=== PATIENT | female | born 1965 | race African-American/Black ===

== ENCOUNTER 2016-09-09 12:10 | Emergency (ER) | payer SELFPAY ==
[2016-09-09] MEDS ORDERED: OXYCODONE HCL 5 MG TABLET PO ONE (12:22)
--- NOTE | 2016-09-09 12:24 | EDPRACDOC ---
- General Information Stated Complaint: RIGHT SHOULDER PAIN Time Seen by Provider: 09/09/16 12:18 Information Source: Patient Mode of Arrival: Car Home Medications: Home Medications Hydrocodone Bit/Acetaminophen [Lortab 5/325] 1 tab PO Q4-6H PRN #15 tab Ibuprofen 600 mg PO Q6H PRN #20 tablet 09/09/16 Allergies/Adverse Reactions: Allergies Allergy/AdvReac Type Severity Reaction Status Date / Time No Known Drug Allergies Allergy Unknown Verified 09/09/16 12:29 - History of Present Illness Onset: 3 hours HPI: Pt states she was carrying a mattress and he son dropped his end causing it to hit her R shoulder. C/o pain. Denies numbness, cp, sob, neck pain. R hand dominate Description: Reports: With Use, At Rest Location: Reports: Right, Anterior, Superior Circumstances: Reports: Spontaneous, Blunt Trauma Relevant History: Reports: None Dominant Hand: Right Pain Severity: Moderate Able to Move Shoulder?: Yes Associated Signs & Symptoms: Reports: None ED Past Medical History - History Reviewed Yes Nurses notes reviewed and agree except as marked - Social Medical History Smoking Status: Light tobacco smoker (less than 5/day) ETOH: None Substance Abuse: None EDM Review of Systems - Review of Systems Constitutional: No Symptoms Reported. negative: Fever, Chills, Weakness, Fatigue, Loss of Appetite Respiratory: No Symptoms Reported. negative: Cough, Brassy Cough, Barky Cough, Shortness of Breath, Wheezing, Hemoptysis Cardiovascular: No Symptoms Reported. negative: Chest Pain, Palpitations, Syncope, Edema, Orthopnea, PND, Skin Mottling, Cyanosis Neurological: No Symptoms Reported. negative: Headache, Dizziness, Seizure, Numbness, Weakness, Speech Difficulty, Gait Difficulty Musculoskeletal: Shoulder Integumentary: No Symptoms Reported. negative: Itching, Rash, Bruising, Wound Allergic/Immunologic: No Symptoms Reported. negative: Hives, Itching Hematologic: No Symptoms Reported. negative: Lymphadenopathy, Easy Bruising, Easy Bleeding Psychiatric: No Symptoms Reported. negative: Anxiety, Depression, Hallucinations, Insomnia, Suicidal - Physical Exam Constitutional: Alert Oriented to: Time, Person, Place Last recorded Vital Signs: Oxygen Pulse Oxygen Saturation O2 Device Oxygen Flow Rate Fraction of Inspired Oxygen ( FIO2) - HEENT Head: Normal ( normocephalic) Eye Exam: Normal (PERRL, EOMI, Sclera white) Neck: Normal (FROM, trachea at midline) - Respiratory/Cardiovascular Respiratory: Normal - CTA (BBS clear to auscultation without adventitious sounds ) Cardiovascular: Normal (RRR without murmur, gallop or rub) - Musculoskeletal Back: Normal (Non-Tender) Extremities: Normal (Normal tone, Pulses 2+ No cyanosis or edema, FROM) - Integumentary Skin: Normal, Warm, Dry Lymphatics: Normal (no adenopathy) - Neurologic Memory Impaired: Normal Motor Function: Normal (Normal tone, Pulses 2+ No cyanosis or edema, FROM) Mood Description: Normal Perception: Normal ED Shoulder Problem Exam - Musculoskeletal Clavicle: Tender (Ac joint) Shoulder: Tender Drop arm test: Negative Impingement test: Negative Arm: Normal Distal Function/Circulation: Normal - Differential Diagnosis AC separation, Sprain - Diagnostic Imaging Shoulder Image interpreted by: Radiologist IMPRESSION: 1. [id number] degenerative glenohumeral arthropathy. No fracture or dislocation observed. Decision Time to Discharge: 13:06 - Departure Disposition: Home Condition: Good Final Diagnosis: Sprain of right shoulder Qualifiers: Encounter type: initial encounter Shoulder sprain type: unspecified sprain Qualified Code(s): S43.401A - Unspecified sprain of right shoulder joint, initial encounter Instructions: Shoulder Sprain (ED), RICE: Routine Care for Injuries Education/Counseling Given To: Patient Education/Counseling Given Regarding: Diagnosis, Treatment, Follow Up Referrals: None,No Provider [Primary Care Provider] - One Week Cesario Avelar MD [Staff Physician] - One Week Prescriptions: Hydrocodone Bit/Acetaminophen [Lortab 5/325] 1 tab PO Q4-6H PRN #15 tab PRN Reason: Pain Ibuprofen 600 mg PO Q6H PRN #20 tablet PRN Reason: Pain Additional Instructions: Return for worse or different symptoms.
[2016-09-09 12:31] VITALS: TEMP 98.3; BMI 26.4
--- NOTE | 2016-09-09 13:03 | DIRPT ---
CLINICAL DATA: Mattress struck right shoulder and fall down stairs. Shoulder pain. EXAM: RIGHT SHOULDER - 2+ VIEW COMPARISON: None FINDINGS: Mild spurring of the inferior glenoid with suspicion for mild chondral thinning in the glenohumeral joint. No fracture or dislocation. Mild degenerative AC joint arthropathy. Subacromial morphology is type 2 (curved). IMPRESSION: 1. [id number] degenerative glenohumeral arthropathy. No fracture or dislocation observed. Electronically Signed By: [place] M.D. On: 09/09/2016 13:00
[2016-09-09 13:17] VITALS: BP 169/102; PULSE 84
== END 2016-09-09 13:20 | disposition home or self-care (01) ==
LOC: EDMC 12:10
DX: S43.401A Unspecified sprain of right shoulder joint, initial encounter (principal); X58.XXXA Exposure to other specified factors, initial encounter; Y93.89 Activity, other specified
CPT/HCPCS: 73030; 99283; J3490

== ENCOUNTER 2016-09-13 09:18 | Emergency (ER) | payer SELFPAY ==
[2016-09-13 09:31] VITALS: TEMP 98.6; BMI 26.6
[2016-09-13] MEDS ORDERED: PREDNISONE 20 MG TAB PO ONE (09:42)
[2016-09-13] MEDS ORDERED: ALBUTEROL 0.083% 3 ML NEB NEB ONE (09:42)
[2016-09-13] MEDS ORDERED: AZITHROMYCIN 250 MG TAB PO ONE (09:42)
[2016-09-13] MEDS ORDERED: TUSSIONEX 5 ML ORAL SYRINGE PO ONE (09:43)
--- NOTE | 2016-09-13 09:45 | EDPRACDOC ---
- General Information Chief Complaint: Flu-Like Symptoms Stated Complaint: COUGH, SYNCOPE Time Seen by Provider: 09/13/16 09:38 Mode Of Arrival: Car Home Medications: Home Medications Azithromycin [Zithromax] 250 mg PO DAILY #6 tablet 09/13/16 Prednisone [Sterapred 10 mg/6 day pack] 21 tab PO DIR #1 pack 09/13/16 Tussionex [Tussionex Oral Suspension] 5 ml PO BID PRN #120 ml 09/13/16 Unknown Blood Pressure 1 tab PO DAILY 09/13/16 Allergies/Adverse Reactions: Allergies Allergy/AdvReac Type Severity Reaction Status Date / Time tramadol Allergy Nausea only Verified 09/13/16 09:27 - History of Present Illness Symptoms Started: Tuesday HPI: PATIENT PRESENTS C/O COUGH- NONPRODUCTIVE FOR DAYS. NO FEVER. PAIN WITH ANY COUGH. MILD SOB. Symptoms: Reports: Cough, Nasal Symptoms Recent Medications: Reports: None Relevant History Of: Reports: COPD Shortness of Breath: Mild Cough Frequency: Continuous Cough Description: Reports: Non-productive Rhinorrhea: Reports: Clear Ear Symptoms: Reports: None Associated Signs and Symptoms: Reports: Cough, Nasal Symptoms ED Past Medical History - History Reviewed Yes Nurses notes reviewed and agree except as marked Travel Outside of [place] in the Last 3 Months?: No - Patient Medical History Cardiac History: Reports: Hypertension Psychological History: Denies: Depression Surgical History: Reports: Hysterectomy - Social Medical History Smoking Status: Light tobacco smoker (less than 5/day) ETOH: None Substance Abuse: None Lives With: Family Lives In: Home EDM Review of Systems - Review of Systems ROS Negative Except as Marked: Yes All systems reviewed and were negative except as marked Constitutional: No Symptoms Reported. negative: Fever, Chills, Weakness, Fatigue, Loss of Appetite Eyes: No Symptoms Reported. negative: Redness, Blurred Vision, Double Vision, Discharge, Pain, Light Sensitive, Photophobia Ears: No Symptoms Reported. negative: Pain, Hearing Loss, Drainage, Ear Pulling Throat: No Symptoms Reported. negative: Pain, Swelling Nose: No Symptoms Reported. negative: Congestion, Bleeding, Discharge, Injection, Swelling, Deformity, Ecchymosis, Tender, Abrasion, Laceration Mouth: No Symptoms Reported. negative: Pain, Drooling Respiratory: Cough, Shortness of Breath. negative: Barky Cough, Brassy Cough, Hemoptysis, Wheezing Cardiovascular: No Symptoms Reported. negative: Chest Pain, Palpitations, Syncope, Edema, Orthopnea, PND, Skin Mottling, Cyanosis Gastrointestinal: No Symptoms Reported. negative: Pain, Constipation, Nausea, Vomiting, Diarrhea, Melena, Formula Intolerance Genitourinary: No Symptoms Reported. negative: Dysuria, Hematuria, Frequency, Discharge, Bleeding, Testicular Pain, Neurological: No Symptoms Reported. negative: Headache, Dizziness, Seizure, Numbness, Weakness, Speech Difficulty, Gait Difficulty Musculoskeletal: No Symptoms Reported. negative: Neck, Chestwall, Ribs, Back, Shoulder, Arm, Elbow, Forearm, Wrist, Hand, Pelvis, Hip, Femur, Knee, Leg, Ankle , Foot Integumentary: No Symptoms Reported. negative: Itching, Rash, Bruising, Wound Allergic/Immunologic: No Symptoms Reported. negative: Hives, Itching Hematologic: No Symptoms Reported. negative: Lymphadenopathy, Easy Bruising, Easy Bleeding Endocrine: No Symptoms Reported. negative: Weight Gain, Weight Loss Psychiatric: No Symptoms Reported. negative: Anxiety, Depression, Hallucinations, Insomnia, Suicidal - Physical Exam Constitutional: Alert (Awake), No apparent distress Oriented to: Time, Person, Place Last recorded Vital Signs: Last Vital Signs Temp 98.6 F 09/13/16 09:29 Pulse 84 09/13/16 09:29 Resp 18 09/13/16 09:29 BP 129/79 09/13/16 09:29 Pulse Ox 98 09/13/16 09:29 Oxygen Pulse Oxygen Saturation 98 O2 Device Room Air Oxygen Flow Rate Fraction of Inspired Oxygen ( FIO2) - HEENT Head: Normal ( normocephalic) Eye Exam: Normal (PERRL, EOMI, Sclera white) Oropharynx: Normal (Pharynx:Moist without exudate,Gums-no swelling) Tympanic Membrane: Normal ENT EAC: Normal TMJ: Normal Nose: No Symptoms Reported (septum midline) Neck: Normal (FROM, trachea at midline) - Respiratory/Cardiovascular Respiratory: Diminished Cardiovascular: Normal (RRR without murmur, gallop or rub) - GI Auscultation: Normal (NABS) Palpation: Normal (Soft,No rebound or guarding, non distended) Tenderness: Non tender Plata's Sign: Negative - Musculoskeletal Back: Normal (Non-Tender) Extremities: Normal (Normal tone, Pulses 2+ No cyanosis or edema, FROM) - Integumentary Skin: Normal, Warm, Dry Lymphatics: Normal (no adenopathy) - Neurologic Memory Impaired: Normal Motor Function: Normal (Normal tone, Pulses 2+ No cyanosis or edema, FROM) Cranial Nerve: Normal (CN II-X11 intact sensation, strength 5/5) Cerebellar: Normal Mood Description: Normal Perception: Normal Decision Time to Discharge: 10:43 - Departure Yes I personally saw and evaluated the patient. Disposition: Home Condition: Good Final Diagnosis: URI (upper respiratory infection) Qualifiers: URI type: unspecified URI Qualified Code(s): J06.9 - Acute upper respiratory infection, unspecified Instructions: Upper Respiratory Infection (ED) Education/Counseling Given To: Patient Education/Counseling Given Regarding: Diagnosis, Treatment, Prognosis, Follow Up Referrals: None,No Provider [Primary Care Provider] - One Week Jarvis Billings MD [Staff Physician] - One Week Prescriptions: Azithromycin [Zithromax] 250 mg PO DAILY #6 tablet Prednisone [Sterapred 10 mg/6 day pack] 21 tab PO DIR #1 pack Tussionex [Tussionex Oral Suspension] 5 ml PO BID PRN #120 ml PRN Reason: Cough
--- NOTE | 2016-09-13 10:00 | DIRPT ---
CLINICAL DATA: Cough. EXAM: CHEST 2 VIEW COMPARISON: None. FINDINGS: The heart size and mediastinal contours are within normal limits. Both lungs are clear. The visualized skeletal structures are unremarkable. IMPRESSION: No active cardiopulmonary disease. Electronically Signed By: [place] M.D. On: 09/13/2016 09:58
[2016-09-13] MEDS ORDERED: ALBUTEROL 6.7 GM MDI INH ONE (10:08)
[2016-09-13] MEDS ORDERED: DIAZEPAM 2 MG TAB PO ONE (10:54)
[2016-09-13 11:13] VITALS: BP 143/72; PULSE 78
== END 2016-09-13 11:07 | disposition home or self-care (01) ==
LOC: ED 09:18
DX: J06.9 Acute upper respiratory infection, unspecified (principal)
CPT/HCPCS: 71020; 87804; 94640; 94664; 99283; J3490